=== PATIENT | female | born 1980 | race Caucasian/White ===

== ENCOUNTER 2022-10-06 11:41 | Outpatient (CLI) | payer OTHER, SELFPAY ==
[2022-10-06 13:07] LABS: C Reactive Protein* 1.5 mg/dL (0.5-1.0)
[2022-10-06 13:39] LABS: Erythrocyte SedimentationRate* 7 mm/hr (2-20)
[2022-10-06 14:52] LABS: Mononuclear WBC Body Fluid* 69 %; Polynuclear WBC Body Fluid* 31 %; RBC, Body Fluid* 28000 Cells/uL; WBC, Body Fluid* 5092 Cells/uL
[2022-10-06 15:03] LABS: BF Clarity* Slightly Cloudy; BF Color Blood Tinged
[2022-10-07 16:55] LABS: Rheumatoid Factor <10 IU/mL (0-14)
[2022-10-07 23:38] LABS: Anti-Nuclear Ab(ANA)IgG ELISA None Detected (None Detected)
== END 2022-10-06 11:42 | disposition home or self-care (01) ==
PROVIDERS: PCP Family Medicine; Visit Provider Physician Assistant Surgical
DX: M25.461 Effusion, right knee (principal); M06.9 Rheumatoid arthritis, unspecified
CPT/HCPCS: 36415; 85651; 86039; 86140; 86200; 86431; 87070; 87075; 87205; 89051; 89060